=== PATIENT | male | born 1960 | race Caucasian/White ===

== ENCOUNTER → 2017-03-10 | Outpatient (CLI) | payer BC ==
--- NOTE | 2017-03-10 11:04 | DI ---
Indication: ITS.REASON: M25.562 PAIN IN LEFT KNEE PROCEDURE: KNEE LEFT STANDING 3 VIEWS: Encounter: Initial Comparison: None Findings: There is no acute fracture, dislocation or malalignment identified. Joint spaces are normal. No joint effusion. Impression: No acute osseous abnormality. .
== END ==
LOC: IMA 10:18
PROVIDERS: ATTEND Family Medicine
DX: M25.562 Pain in left knee (principal)